=== PATIENT | female | born 1960 | race Caucasian/White ===

== ENCOUNTER → 2017-01-02 | Outpatient (CLI) | payer OTHER | END | disposition home or self-care (01) | LOC: CFH 11:27 | PROVIDERS: ATTEND Nurse Practitioner Primary Care | DX: Z12.31 Encounter for screening mammogram for malignant neoplasm of breast (principal); E04.1 Nontoxic single thyroid nodule | CPT/HCPCS: 76536; G0202 ==

== ENCOUNTER → 2018-04-25 | Outpatient (CLI) | payer OTHER | END | disposition home or self-care (01) | LOC: CFH 14:10 | PROVIDERS: ATTEND Obstetrics & Gynecology Female Pelvic Medicine and Reconstructive Surgery | DX: Z12.31 Encounter for screening mammogram for malignant neoplasm of breast (principal) | CPT/HCPCS: 77067 ==

== ENCOUNTER → 2018-05-09 | Outpatient (CLI) | payer OTHER | END | disposition home or self-care (01) | LOC: CFH 13:00 | PROVIDERS: ATTEND Nurse Practitioner Primary Care | DX: M85.88 Other specified disorders of bone density and structure, other site (principal); E03.9 Hypothyroidism, unspecified; Z79.899 Other long term (current) drug therapy; Z78.0 Asymptomatic menopausal state | CPT/HCPCS: 77080 ==

== ENCOUNTER → 2018-07-02 | Outpatient (CLI) | payer OTHER ==
[~2018-07-02] MED LIST: GADOBUTROL 10 MMOL/10 ML VIAL ONE
== END | disposition home or self-care (01) ==
LOC: CFH 07:51
PROVIDERS: ATTEND Nurse Practitioner Primary Care
DX: E23.6 Other disorders of pituitary gland (principal); E03.9 Hypothyroidism, unspecified; E55.9 Vitamin D deficiency, unspecified; M85.88 Other specified disorders of bone density and structure, other site; I10 Essential (primary) hypertension; F41.8 Other specified anxiety disorders; Z79.899 Other long term (current) drug therapy
CPT/HCPCS: 70553; 82565; A9585

== ENCOUNTER → 2018-09-12 | Outpatient (CLI) | payer OTHER | END | disposition home or self-care (01) | LOC: CFH 12:05 | PROVIDERS: ATTEND Obstetrics & Gynecology Female Pelvic Medicine and Reconstructive Surgery | DX: N85.2 Hypertrophy of uterus (principal) | CPT/HCPCS: 76830 ==

== ENCOUNTER 2019-04-26 14:23 | Outpatient (CLI) | payer OTHER | END 2019-04-26 23:59 | disposition home or self-care (01) | LOC: CFH 14:23 | PROVIDERS: ATTEND Nurse Practitioner Obstetrics & Gynecology | DX: Z12.31 Encounter for screening mammogram for malignant neoplasm of breast (principal); N64.89 Other specified disorders of breast | CPT/HCPCS: 77063; 77067 ==

== ENCOUNTER → 2020-05-28 | Outpatient (CLI) | payer OTHER | END | disposition home or self-care (01) | LOC: CFH 13:54 | PROVIDERS: ATTEND Nurse Practitioner Obstetrics & Gynecology | DX: Z12.31 Encounter for screening mammogram for malignant neoplasm of breast (principal) | CPT/HCPCS: 77063; 77067 ==

== ENCOUNTER → 2020-06-16 | Outpatient (CLI) | payer OTHER | END | disposition home or self-care (01) | LOC: CFH 15:33 | PROVIDERS: ATTEND Obstetrics & Gynecology Female Pelvic Medicine and Reconstructive Surgery | DX: N60.02 Solitary cyst of left breast (principal); N60.01 Solitary cyst of right breast; R92.2 Inconclusive mammogram | CPT/HCPCS: 76641 ==

== ENCOUNTER → 2020-12-16 | Outpatient (CLI) | payer OTHER | END | disposition home or self-care (01) | LOC: CFH 09:57 | PROVIDERS: ATTEND Nurse Practitioner Primary Care | DX: M81.0 Age-related osteoporosis without current pathological fracture (principal) | CPT/HCPCS: 77080 ==